=== PATIENT | female | born 1980 | race Caucasian/White ===

== ENCOUNTER 2018-01-30 18:25 | Emergency (ER) | payer MEDICARE, OTHER | END 2018-01-30 18:50 | disposition home or self-care (01) | LOC: NAV ERS 18:25 | DX: R31.9 Hematuria, unspecified (principal); I10 Essential (primary) hypertension; F41.9 Anxiety disorder, unspecified; F32.9 Major depressive disorder, single episode, unspecified; Z87.891 Personal history of nicotine dependence; Z79.899 Other long term (current) drug therapy | CPT/HCPCS: 99283 ==